=== PATIENT | male | born 2000 | race Caucasian/White ===

== ENCOUNTER 2023-07-07 11:46 | Emergency (ER) | payer OTHER ==
[~2023-07-07] VITALS: Ht 170.2 cm; Wt 94.1 kg
[2023-07-07 12:17] LABS: BASO # 0.04 K/mm3 (0.02-0.10); EOS # 0.29 K/mm3 (0.04-0.40); EOS % 4.4 % (0.0-4.0); HEMATOCRIT 51.2 % (42.0-52.0); HEMOGLOBIN 17.9 g/dL (13.5-18.0); MEAN CELL VOLUME 88 fl (78-100); MEAN CORPUSCULAR HEMOGLOBIN 31 pg (27-31); MEAN CORPUSCULAR HGB CONC 35 g/dL (33-37); MONO # 0.64 K/mm3 (0.20-0.80); NEU # 4.18 K/mm3 (1.40-6.50); PLATELET COUNT 217 K/mm3 (130-400); RED BLOOD COUNT 5.83 M/mm3 (4.20-5.60); RED CELL DISTRIBUTION WIDTH 12.4 % (11.5-14.5); WHITE BLOOD COUNT 6.7 K/mm3 (4.8-10.8)
[2023-07-07] MEDS ORDERED: ADULT ASPIRIN R81 MG PO (12:20)
[2023-07-07] MEDS ORDERED: NADOLOL80 M1 PO (12:21)
[2023-07-07 12:25] LABS: ALBUMIN 4.8 g/dL (3.5-5.0); POTASSIUM 4.1 mmol/L (3.5-5.1); SODIUM 138 mmol/L (136-145)
[2023-07-07 12:26] LABS: CALCIUM 9.9 mg/dL (8.3-10.5)
[2023-07-07 12:27] LABS: GLUCOSE 101 mg/dL (75-110); TOTAL PROTEIN 7.9 g/dL (6.4-8.3)
[2023-07-07 12:29] LABS: CARBON DIOXIDE 25 mmol/L (22-29); TOTAL BILIRUBIN 0.8 mg/dL (0.2-1.2)
[2023-07-07 12:33] LABS: AST-SGOT 30 U/L (5-34)
[2023-07-07 12:34] LABS: ALT/SGPT 24 U/L (0-55)
[2023-07-07 12:41] LABS: TROPONIN-I < 0.030 ng/mL (<0.030)
[2023-07-07 14:26] VITALS: BP 120/74
[2023-07-07] MEDS ORDERED: CEPHALEXIN500 M1 PO (14:29)
== END 2023-07-07 13:50 | disposition home or self-care (01) ==
LOC: ED 11:46
PROVIDERS: Family Medicine
DX: I48.91 Unspecified atrial fibrillation (principal); J06.9 Acute upper respiratory infection, unspecified; R79.89 Other specified abnormal findings of blood chemistry; R94.31 Abnormal electrocardiogram [ECG] [EKG]; F17.200 Nicotine dependence, unspecified, uncomplicated; Z28.310 Unvaccinated for COVID-19
CPT/HCPCS: J0696; J7030

== ENCOUNTER 2024-07-15 12:52 | Emergency (ER) | payer OTHER ==
[~2024-07-15] VITALS: Ht 177.8 cm; Wt 95.5 kg
[~2024-07-15 12:52] MED LIST: ADULT ASPIRIN R81 MG PO; CEPHALEXIN500 M1 PO; ELIQUIS5 MG PO; NADOLOL80 M1 PO
[2024-07-15 13:48] VITALS: BP 125/77
== END 2024-07-15 16:24 | disposition home or self-care (01) ==
LOC: ED 12:52
DX: S09.90XA Unspecified injury of head, initial encounter (principal); R07.81 Pleurodynia; M54.2 Cervicalgia; I48.91 Unspecified atrial fibrillation; Z79.01 Long term (current) use of anticoagulants; W22.8XXA Striking against or struck by other objects, initial encounter